=== PATIENT | female | born 1985 | race Hispanic/Latino ===

== ENCOUNTER → 2018-02-17 | Outpatient (CLI) | payer OTHER | LOC: SL 20:11 | PROVIDERS: ATTEND Family Medicine | DX: R53.83 Other fatigue (principal); I10 Essential (primary) hypertension; E66.2 Morbid (severe) obesity with alveolar hypoventilation ==

== ENCOUNTER 2019-06-19 23:02 | Emergency (ER) | payer OTHER ==
[2019-06-19 23:42] VITALS: TEMP 97.9
[2019-06-20 00:23] VITALS: BP 131/81; O2SAT 98
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
== END 2019-06-20 01:05 | disposition home or self-care (01) ==
LOC: ER 23:02
DX: S16.1XXA Strain of muscle, fascia and tendon at neck level, initial encounter (principal); S30.1XXA Contusion of abdominal wall, initial encounter; V49.59XA Passenger injured in collision with other motor vehicles in traffic accident, initial encounter; Y92.410 Unspecified street and highway as the place of occurrence of the external cause; Z87.891 Personal history of nicotine dependence